=== PATIENT | female | born 1985 ===

== ENCOUNTER 2018-09-19 01:02 | Emergency (ER) | payer MEDICAID, OTHER ==
[2018-09-19 02:34] LABS: Basophils % (Auto) 0.4 % (0.0-1.8); Eosinophils # (Auto) 0.2 K/mm3 (0.0-0.4); Eosinophils % (Auto) 2.5 % (0.0-4.3); Hemoglobin 12.8 gm/dl (10.1-14.3); Lymphocytes # (Auto) 2.3 K/mm3 (1.2-5.4); Lymphocytes % (Auto) 26.7 % (13.4-35.0); Mean Corpuscular HGB Conc 35 % (30-34); Mean Corpuscular Volume 81 fl (79-97); Monocytes # (Auto) 0.9 K/mm3 (0.0-0.8); Monocytes % (Auto) 10.2 % (0.0-7.3); Platelet Count 380 K/mm3 (140-440); Red Blood Count 4.56 M/mm3 (3.65-5.03); Red Cell Distribution Width 13.6 % (13.2-15.2)
--- NOTE | 2018-09-19 04:42 | Ultrasound Report ---
PROCEDURE: US OB TRANSVAGINAL TECHNIQUE: Real-time transvaginal sonography of the uterus, placenta, amniotic fluid, adnexa, and fe tus was performed with image documentation. Measurements were obtained to determine age/size. M -mode Doppler was used to document heartbeat. ADDITIONAL GESTATION: None. HISTORY: vaginal bleeding COMPARISONS: None . FINDINGS: There is an irregular shaped intrauterine gestational sac with yolk sac. There is no pole or ca rdiac activity. The mean sac diameter is 1.5 cm corresponding to an estimated gestational age of 6 weeks and 2 days. Estimated date of delivery is 05/13/2019. Cervix: Normal. Right Ovary: Normal . Left Ovary: Normal . Estimated delivery date: 05/13/2019. . Uterus and adnexa: Normal. IMPRESSION: Possible normal early intrauterine gestation. However, at this time, no pole or cardiac activit y is identified. Follow-up beta hCG measurements suggested. This document is electronically signed by Lucien Stapleton MD., September 19 2018 04:40:42 AM ET
--- NOTE | 2018-09-19 04:42 | Ultrasound Report ---
PROCEDURE: US OB <= 14 WEEKS FETUS TECHNIQUE: Real-time transabdominal sonography of the uterus, placenta, amniotic fluid, adnexa, and fetus was performed with image documentation. Measurements were obtained to determine age/size. M-mode Doppler was used to document heartbeat. ADDITIONAL GESTATION: None. HISTORY: vaginal bleeding COMPARISONS: None . FINDINGS: There is an irregular shaped intrauterine gestational sac with yolk sac. There is no pole or ca rdiac activity. The mean sac diameter is 1.5 cm corresponding to an estimated gestational age of 6 weeks and 2 days. Estimated date of delivery is 05/13/2019. Cervix: Normal. Right Ovary: Normal . Left Ovary: Normal . Estimated delivery date: 05/13/2019. . Uterus and adnexa: Normal. IMPRESSION: Possible normal early intrauterine gestation. However, at this time, no pole or cardiac activit y is identified. Follow-up beta hCG measurements suggested. This document is electronically signed by Lucien Stapleton MD., September 19 2018 04:40:14 AM ET
--- NOTE | 2018-09-19 06:14 | Emergency Department Report ---
<MITZY LUCIA - Last Filed: 09/19/18 07:50> ED Female HPI - General Chief complaint: Abdominal Pain Stated complaint: VAGINAL BLEEDING Time Seen by Provider: 09/19/18 05:58 Source: patient Mode of arrival: Ambulatory Limitations: No Limitations - History of Present Illness Initial comments: Pt is a 32 yo female who presents to the ED with c/o lower abdominal bloating and vaginal spotting that began a week ago. She states that she is currently 7.5 weeks based on LNMP. Pt has not seen an COURT SECURITY OFFICER yet, she states she had her confirmed by a center. She denies any abdominal pain, N/V, urinary sx, or fever. She has a hx of hyperthyroid and currently takes PTU. - Related Data Previous Rx's Medication Instructions Recorded Last Taken Type Cephalexin [Keflex] 500 mg PO BID 7 Days #14 capsule 09/19/18 Unknown Rx Allergies Allergy/AdvReac Type Severity Reaction Status Date / Time No Known Allergies Allergy Unverified 09/19/18 01:05 ED Review of Systems Comment: All other systems reviewed and negative ED Past Medical Hx - Past Medical History Previous Medical History?: Yes Additional medical history: Thyroid Disease - Surgical History Past Surgical History?: No - Social History Smoking Status: Never Smoker Substance Use Type: None - Medications Home Medications: Home Medications Medication Instructions Recorded Confirmed Last Taken Type Cephalexin [Keflex] 500 mg PO BID 7 Days #14 capsule 09/19/18 Unknown Rx ED Physical Exam - General Limitations: No Limitations General appearance: alert, in no apparent distress - Head Head exam: Present: atraumatic, normocephalic - Eye Eye exam: Present: normal appearance - ENT ENT exam: Present: mucous membranes moist - Respiratory Respiratory exam: Present: normal lung sounds bilaterally. Absent: respiratory distress, wheezes, rales, rhonchi, stridor, chest wall tenderness, accessory muscle use, decreased breath sounds, prolonged expiratory - Cardiovascular Cardiovascular Exam: Present: regular rate, normal rhythm, systolic murmur (2/6 sytolic murmur). Absent: diastolic murmur, rubs, gallop - GI/Abdominal GI/Abdominal exam: Present: soft, normal bowel sounds. Absent: distended, tenderness, guarding, rebound, rigid - Back Exam Back exam: Absent: CVA tenderness (R), CVA tenderness (L) - Neurological Exam Neurological exam: Present: alert, oriented X3 - Psychiatric Psychiatric exam: Present: normal affect, normal mood - Skin Skin exam: Present: warm, dry, intact ED Medical Decision Making - Lab Data Result diagrams: 09/19/18 02:20 Lab Results 09/19/18 09/19/18 09/19/18 Range/Units 02:20 02:20 06:10 WBC 8.7 (4.5-11.0) K/mm3 RBC 4.56 (3.65-5.03) M/mm3 Hgb 12.8 (10.1-14.3) gm/dl Hct 37.0 (30.3-42.9) % MCV 81 (79-97) fl MCH 28 (28-32) pg MCHC 35 H (30-34) % RDW 13.6 (13.2-15.2) % Plt Count 380 (140-440) K/mm3 Lymph % (Auto) 26.7 (13.4-35.0) % Chase % (Auto) 10.2 H (0.0-7.3) % Eos % (Auto) 2.5 (0.0-4.3) % Baso % (Auto) 0.4 (0.0-1.8) % Lymph # 2.3 (1.2-5.4) K/mm3 Chase # 0.9 H (0.0-0.8) K/mm3 Eos # 0.2 (0.0-0.4) K/mm3 Baso # 0.0 (0.0-0.1) K/mm3 Seg Neutrophils % 60.2 (40.0-70.0) % Seg Neutrophils # 5.2 (1.8-7.7) K/mm3 HCG, Quant 9210 H (0-4) mIU/mL Urine Color (Yellow) Urine Turbidity (Clear) Urine pH (5.0-7.0) Ur Specific [place] (1.003-1.030) Urine Protein (Negative) mg/dL Urine Glucose (UA) (Negative) mg/dL Urine Ketones (Negative) mg/dL Urine Blood (Negative) Urine Nitrite (Negative) Urine Bilirubin (Negative) Urine Urobilinogen (<2.0) mg/dL Ur Leukocyte Esterase (Negative) Urine WBC (Auto) (0.0-6.0) /HPF Urine RBC (Auto) (0.0-6.0) /HPF U Epithel Cells (Auto) (0-13.0) /HPF Hyaline Casts /LPF Urine Mucus /HPF Blood Type O POSITIVE 09/19/18 Range/Units 06:34 WBC (4.5-11.0) K/mm3 RBC (3.65-5.03) M/mm3 Hgb (10.1-14.3) gm/dl Hct (30.3-42.9) % MCV (79-97) fl MCH (28-32) pg MCHC (30-34) % RDW (13.2-15.2) % Plt Count (140-440) K/mm3 Lymph % (Auto) (13.4-35.0) % Chase % (Auto) (0.0-7.3) % Eos % (Auto) (0.0-4.3) % Baso % (Auto) (0.0-1.8) % Lymph # (1.2-5.4) K/mm3 Chase # (0.0-0.8) K/mm3 Eos # (0.0-0.4) K/mm3 Baso # (0.0-0.1) K/mm3 Seg Neutrophils % (40.0-70.0) % Seg Neutrophils # (1.8-7.7) K/mm3 HCG, Quant (0-4) mIU/mL Urine Color Yellow (Yellow) Urine Turbidity Slightly-cloudy (Clear) Urine pH 5.0 (5.0-7.0) Ur Specific [place] 1.012 (1.003-1.030) Urine Protein 30 mg/dl (Negative) mg/dL Urine Glucose (UA) Neg (Negative) mg/dL Urine Ketones Neg (Negative) mg/dL Urine Blood Lg (Negative) Urine Nitrite Neg (Negative) Urine Bilirubin Neg (Negative) Urine Urobilinogen < 2.0 (<2.0) mg/dL Ur Leukocyte Esterase Mod (Negative) Urine WBC (Auto) 36.0 H (0.0-6.0) /HPF Urine RBC (Auto) 103.0 (0.0-6.0) /HPF U Epithel Cells (Auto) 4.0 (0-13.0) /HPF Hyaline Casts 1 /LPF Urine Mucus 1+ /HPF Blood Type - Radiology Data Radiology results: report reviewed PROCEDURE: US OB TRANSVAGINAL TECHNIQUE: Real-time transvaginal sonography of the uterus, placenta, amniotic fluid, adnexa, and fetus was performed with image documentation. Measurements were obtained to determine age/size. M-mode Doppler was used to document heartbeat. ADDITIONAL GESTATION: None. HISTORY: vaginal bleeding COMPARISONS: None . FINDINGS: There is an irregular shaped intrauterine gestational sac with yolk sac. There is no pole or cardiac activity. The mean sac diameter is 1.5 cm corresponding to an estimated gestational age of 6 weeks and 2 days. Estimated date of delivery is 05/13/2019. Cervix: Normal. Right Ovary: Normal . Left Ovary: Normal . Estimated delivery date: 05/13/2019. . Uterus and adnexa: Normal. IMPRESSION: Possible normal early intrauterine gestation. However, at this time, no pole or cardiac activity is identified. Follow-up beta hCG measurements suggested. This document is electronically signed by Lucien Stapleton MD., September 19 2018 04:40:42 AM ET - Medical Decision Making Pt is a 32 yo female who presents to the ED with c/o lower abdominal bloating and vaginal spotting that began a week ago. She states that she is currently 7.5 weeks based on LNMP. Pt has not seen an COURT SECURITY OFFICER yet, she states she had her confirmed by a center. She denies any abdominal pain, N/V, urinary sx, or fever. She has a hx of hyperthyroid and currently takes PTU. on examination no abd tenderness. labs WNL. UA shows many WBCs, will give pt ceftriaxone in the ED, and give prescription for keflex. US shows possible normal intrauterine but no pole or cardiac activity measuring 6 weeks 2 days. Will have pt follow up with PCP and sewage disposal worker in the next 2 days. Will need repeat hcg quant in 48 hours. WIll need to discuss her thyroid medication and dose with her PCP and COURT SECURITY OFFICER. Return to the emergency room for any new or worsening symptoms. ED Disposition Clinical Impression: UTI (urinary tract infection), Threatened Disposition: - TO HOME OR SELFCARE Is pt being admited?: No Does the pt Need Aspirin: No Condition: Stable Instructions: Threatened Miscarriage (ED), Urinary Tract Infection in Women (ED) Additional Instructions: will need to have a repeat hcg quant in the next 48 hours. Hcg quant today is 9210. Will need to follow up with COURT SECURITY OFFICER and primary care doctor in the next 2-3 days. 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 Please take all your medication as prescribed. Return to the emergency room for any new or worsening symptoms. Prescriptions: Cephalexin [Keflex] 500 mg PO BID 7 Days #14 capsule Referrals: [facility] TIFF[facility] [Primary Care Provider] - 2-3 Days JOSE JUAN CASANOVA MD [Staff Physician] - 2-3 Days Time of Disposition: 07:47 Print Language: GABONESE <BRADEN NGUYEN - Last Filed: 09/19/18 09:45> ED Review of Systems ROS: Stated complaint: VAGINAL BLEEDING Other details as noted in HPI ED Course Vital Signs 09/19/18 09/19/18 09/19/18 01:06 02:01 07:58 Temperature 98.5 F 98.5 F Pulse Rate 118 H 118 H 122 H Respiratory 18 18 16 Rate Blood Pressure 128/61 128/61 Blood Pressure 119/39 [Left] O2 Sat by Pulse 100 100 98 Oximetry 09/19/18 09:40 Temperature Pulse Rate 116 H Respiratory 16 Rate Blood Pressure Blood Pressure 105/56 [Left] O2 Sat by Pulse 100 Oximetry ED Medical Decision Making - Lab Data Result diagrams: 09/19/18 02:20 - Medical Decision Making staff report on dc pt more tachycardic. wide pulse pressure noted on bp. h/h stable. wbc noted in urine to be high. 1L NS and then reassess. 0945 pulse pressure narrowed. tachycardia improved. discussed thyroid disease with pt - she will need to follow up with endocrine. dc home with dc instructions per Mitzy. Lab Results 09/19/18 09/19/18 09/19/18 Range/Units 02:20 02:20 06:10 WBC 8.7 (4.5-11.0) K/mm3 RBC 4.56 (3.65-5.03) M/mm3 Hgb 12.8 (10.1-14.3) gm/dl Hct 37.0 (30.3-42.9) % MCV 81 (79-97) fl MCH 28 (28-32) pg MCHC 35 H (30-34) % RDW 13.6 (13.2-15.2) % Plt Count 380 (140-440) K/mm3 Lymph % (Auto) 26.7 (13.4-35.0) % Chase % (Auto) 10.2 H (0.0-7.3) % Eos % (Auto) 2.5 (0.0-4.3) % Baso % (Auto) 0.4 (0.0-1.8) % Lymph # 2.3 (1.2-5.4) K/mm3 Chase # 0.9 H (0.0-0.8) K/mm3 Eos # 0.2 (0.0-0.4) K/mm3 Baso # 0.0 (0.0-0.1) K/mm3 Seg Neutrophils % 60.2 (40.0-70.0) % Seg Neutrophils # 5.2 (1.8-7.7) K/mm3 HCG, Quant 9210 H (0-4) mIU/mL Urine Color (Yellow) Urine Turbidity (Clear) Urine pH (5.0-7.0) Ur Specific [place] (1.003-1.030) Urine Protein (Negative) mg/dL Urine Glucose (UA) (Negative) mg/dL Urine Ketones (Negative) mg/dL Urine Blood (Negative) Urine Nitrite (Negative) Urine Bilirubin (Negative) Urine Urobilinogen (<2.0) mg/dL Ur Leukocyte Esterase (Negative) Urine WBC (Auto) (0.0-6.0) /HPF Urine RBC (Auto) (0.0-6.0) /HPF U Epithel Cells (Auto) (0-13.0) /HPF Hyaline Casts /LPF Urine Mucus /HPF Blood Type O POSITIVE 09/19/18 Range/Units 06:34 WBC (4.5-11.0) K/mm3 RBC (3.65-5.03) M/mm3 Hgb (10.1-14.3) gm/dl Hct (30.3-42.9) % MCV (79-97) fl MCH (28-32) pg MCHC (30-34) % RDW (13.2-15.2) % Plt Count (140-440) K/mm3 Lymph % (Auto) (13.4-35.0) % Chase % (Auto) (0.0-7.3) % Eos % (Auto) (0.0-4.3) % Baso % (Auto) (0.0-1.8) % Lymph # (1.2-5.4) K/mm3 Chase # (0.0-0.8) K/mm3 Eos # (0.0-0.4) K/mm3 Baso # (0.0-0.1) K/mm3 Seg Neutrophils % (40.0-70.0) % Seg Neutrophils # (1.8-7.7) K/mm3 HCG, Quant (0-4) mIU/mL Urine Color Yellow (Yellow) Urine Turbidity Slightly-cloudy (Clear) Urine pH 5.0 (5.0-7.0) Ur Specific [place] 1.012 (1.003-1.030) Urine Protein 30 mg/dl (Negative) mg/dL Urine Glucose (UA) Neg (Negative) mg/dL Urine Ketones Neg (Negative) mg/dL Urine Blood Lg (Negative) Urine Nitrite Neg (Negative) Urine Bilirubin Neg (Negative) Urine Urobilinogen < 2.0 (<2.0) mg/dL Ur Leukocyte Esterase Mod (Negative) Urine WBC (Auto) 36.0 H (0.0-6.0) /HPF Urine RBC (Auto) 103.0 (0.0-6.0) /HPF U Epithel Cells (Auto) 4.0 (0-13.0) /HPF Hyaline Casts 1 /LPF Urine Mucus 1+ /HPF Blood Type Vital Signs 09/19/18 09/19/18 09/19/18 01:06 02:01 07:58 Temperature 98.5 F 98.5 F Pulse Rate 118 H 118 H 122 H Respiratory 18 18 16 Rate Blood Pressure 128/61 128/61 Blood Pressure 119/39 [Left] O2 Sat by Pulse 100 100 98 Oximetry 09/19/18 09:40 Temperature Pulse Rate 116 H Respiratory 16 Rate Blood Pressure Blood Pressure 105/56 [Left] O2 Sat by Pulse 100 Oximetry Critical care attestation.: If time is entered above; I have spent that time in minutes in the direct care of this critically ill patient, excluding procedure time.
[2018-09-19 06:44] LABS: Bilirubin,Urine NEG (Negative); Blood,Urine LG (Negative); Color,Urine Yellow (Yellow); Hyaline Casts,Urine 1 /LPF; Mucus,Urine 1+ /HPF; Urobilinogen,Urine < 2.0 mg/dL (<2.0)
[2018-09-19] MEDS ORDERED: ROCEPHIN IM ONE (06:53)
[2018-09-19] MEDS ORDERED: XYLOCAINE 1% MPF 5 mL INFILTRATI ONE (06:53)
[2018-09-19] MEDS ORDERED: NACL 0.9% 1000 ML 1,000 ML IV ONE (08:05)
[2018-09-19 09:41] VITALS: BP 105/56
== END 2018-09-19 09:44 | disposition home or self-care (01) ==
LOC: ED 01:02
DX: O20.0 Threatened abortion (principal); O23.41 Unspecified infection of urinary tract in pregnancy, first trimester; Z3A.01 Less than 8 weeks gestation of pregnancy
CPT/HCPCS: 36415; 76801; 76817; 81001; 84702; 85025; 86900; 86901; 96360; 96372; 99284; J0696; J7030